=== PATIENT | female | born 1980 | race Caucasian/White ===

== ENCOUNTER 2019-05-26 20:17 | Emergency (ER) | payer OTHER ==
[~2019-05-26] VITALS: Ht 160 cm; Wt 58.5 kg
[~2019-05-26 20:17] MED LIST: LIDOCAINE 1% INJ 20 ML 20 ML VIAL ONE
--- NOTE | 2019-05-26 20:31 | ED Upper Extremity ---
General Chief Complaint: Laceration Stated Complaint: RT HAND THUMB LAC Source: patient History of Present Illness Date Seen by Provider: May 26, 2019 Time Seen by Provider: 20:15 Initial Comments Patient is a 38-year-old right handed female presents with left thumb injury/laceration. Patient fell onto or lacerating the base of her right thumb. Patient has a to have some curvilinear full-thickness laceration extending into the proximal nail bed. Bleeding is controlled. Wound is cleaned. Tetanus is up-to-date. Onset: just prior to arrival Pain/Injury Location: right thumb Method of Injury: direct blow Allergies and Home Medications Allergies Coded Allergies: No Known Drug Allergies (Unverified , 05/26/19) Patient Home Medication List Home Medication List Reviewed: Yes Review of Systems Constitutional: no symptoms reported Respiratory: no symptoms reported Gastrointestinal: no symptoms reported Genitourinary: no symptoms reported Musculoskeletal: see HPI Past Wlfarav-Capnyh-Mnwghy Hx Past Med/Social Hx: Reviewed Nursing Past Med/Soc Hx Patient Social History Recent Foreign Travel: No Contact w/Someone Who Travel: No Physical Exam Vital Signs Vital Signs - First Documented 05/26/19 20:25 Temp 99.3 Pulse 96 Resp 18 B/P (MAP) 125/70 (88) Pulse Ox 100 Capillary Refill : Height, Weight, BMI Height: '" Weight: lbs. oz. kg; BMI Method: General Appearance: no apparent distress Hand: laceration (2.5 full-thickness curvilinear laceration extending around the base of right thumb nail and through proximal nailbed, wound is clean, bleeding is controlled) Procedures/Interventions Wound Location: Upper Extremities Other Wound Location 2.5 cm right thumb laceration Irrigated w/ Saline (ccs): 150 Anesthesia: 1% Lidocaine Suture: Ethlion Suture Size: 4-0 Number of Sutures: 5 Layer Closure?: 1 Sterile Dressing Applied?: Yes Progress Wound clean closed. Tetanus already up-to-date. Typical wound care instructions given. Progress/Results/Core Measures Results/Orders My Orders Orders - SABRINA CHEEMA DO Lidocaine 1% Inj 20 Ml (Xylocaine 1% Inj (05/26/19 20:17) Lidocaine 1% Inj 20 Ml (Xylocaine 1% Inj (05/26/19 20:45) Hydrocodone/Apap 5/325 Tablet (Lortab 5 (05/26/19 21:00) Vital Signs/I&O 8/20/19 20:25 Temp 99.3 Pulse 96 Resp 18 B/P (MAP) 125/70 (88) Pulse Ox 100 Departure Communication (Admissions) Wound clean closed. Pain address. Patient to return in 6-8 days for suture removal. Impression Primary Impression: Laceration of right thumb Disposition: HOME, SELF-CARE Condition: Improved Departure-Patient Inst. Referrals: TANISHA MARTINS APRN (PCP) Primary Care Physician Patient Instructions: Laceration Repair With Stitches (DC) Add. Discharge Instructions: Please keep wound clean and dry and covered for the first 48 hours. Return to ED in 6-8 days for suture removal or sooner if signs of infection. All discharge instructions reviewed with patient and/or family. Voiced understanding. SABRINA CHEEMA DO May 26, 2019 20:31
[2019-05-26] MEDS ORDERED: LIDOCAINE 1% INJ 20 ML 20 ML VIAL INJ ONE (20:45)
[2019-05-26 20:56] VITALS: BP 125/70
[2019-05-26] MEDS ORDERED: HYDROcodone/APAP 5 MG/325 MG (LORTAB) TAB PO ONE (21:00)
== END 2019-05-26 20:57 | disposition home or self-care (01) ==
LOC: ER FS 20:19
DX: S61.111A Laceration without foreign body of right thumb with damage to nail, initial encounter (principal); W26.8XXA Contact with other sharp object(s), not elsewhere classified, initial encounter
CPT/HCPCS: 12001

== ENCOUNTER 2019-06-03 14:32 | Emergency (ER) | payer OTHER ==
[~2019-06-03] VITALS: Ht 160 cm; Wt 58.5 kg
--- NOTE | 2019-06-03 14:53 | ED Suture Removal/Wound Check ---
Suture/Wound Re-check Suture Removal/Wound Recheck : Suture Removal/Wound Recheck: Sutures removed by RN General Appearance: WD/WN, no apparent distress Neuro/Tendon: normal sensation, normal motor functions, normal tendon functions, responds to pain, no evidence tendon injury Skin Exam: normal color, warm/dry Physical Exam Vital Signs Capillary Refill : General Appearance: WD/WN, no apparent distress Departure Impression Primary Impression: Visit for suture removal Disposition: HOME, SELF-CARE Condition: Stable Departure-Patient Inst. Decision time for Depature: 14:53 Referrals: TANISHA MARTINS APRN (PCP/Family) Primary Care Physician Patient Instructions: SUTURE REMOVAL - UNCOMPLICATED Add. Discharge Instructions: Keep clean with regular soap and water. All discharge instructions reviewed with patient and/or family. Voiced understanding. SILVIA MORALES Jun 03, 2019 14:53
[2019-06-03 15:02] VITALS: BP 145/83
== END 2019-06-03 14:58 | disposition home or self-care (01) ==
LOC: EDUNIT# 14:32 → ER FS 14:33
DX: S61.011D Laceration without foreign body of right thumb without damage to nail, subsequent encounter (principal); X58.XXXD Exposure to other specified factors, subsequent encounter